=== PATIENT | female | born 1970 | race Hispanic/Latino ===

== ENCOUNTER 2019-12-01 11:33 | Emergency (ER) | payer BC ==
[~2019-12-01] VITALS: Ht 152.4 cm; Wt 67.2 kg
[~2019-12-01 11:33] MED LIST: LIPITOR40 MG PO; birth control PO
[2019-12-01] MEDS ORDERED: SODIUM CHLORIDE FLUSH 10 ML SYR INJ PRN (12:30)
[2019-12-01] MEDS ORDERED: CEFTRIAXONE SOD 1 GM/NS 50 ML 50 ML IV ONE ×2 (12:30→12:58)
[2019-12-01] MEDS ORDERED: METOPROLOL TARTRATE INJ 1 MG/ML VIAL IV ONE (12:30)
[2019-12-01] MEDS ORDERED: METOPROLOL TARTRATE INJ 1 MG/ML VIAL ONE (12:58)
[2019-12-01 13:21] LABS: BASOPHILS % 0.5 % (0.0-1.0); EOSINOPHILS % 0.2 % (0.0-6.0); HEMATOCRIT 42.4 % (34.2-44.1); HEMOGLOBIN 14.2 g/dL (12.0-16.0); LYMPHOCYTES # (AUTO) 0.9 (1.0-3.2); LYMPHOCYTES % 16.9 % (18.0-39.1); MEAN CORPUSCULAR HEMOGLOBIN 27.2 pg (28-32); MEAN CORPUSCULAR HGB CONC 33.5 g/dL (31-35); MEAN CORPUSCULAR VOLUME 81.1 fL (81-99); MONOCYTES # (AUTO) 0.5 (0.2-0.8); MONOCYTES % 8.3 % (4.4-11.3); NEUTROPHILS # (AUTO) 4.1 (2.1-6.9); NEUTROPHILS % 73.9 % (38.7-80.0); PLATELET COUNT 292 x10e3/uL (140-360); RED BLOOD COUNT 5.23 x10e6/uL (3.6-5.1); RED CELL DISTRIBUTION WIDTH 12.5 % (11.7-14.4)
--- NOTE | 2019-12-01 13:27 | Diagnostic Imaging Report ---
EXAMINATION: CXR 2 VIEW - HOPD INDICATION: palpitations/tachycardia COMPARISON: None FINDINGS: TUBES and LINES: None. LUNGS: Lungs are well inflated. There is no evidence of pneumonia or pulmonary edema. PLEURA: No pleural effusion or pneumothorax. HEART AND MEDIASTINUM: The cardiomediastinal silhouette is unremarkable. BONES AND SOFT TISSUES: No acute osseous lesion. Soft tissues are unremarkable. UPPER ABDOMEN: No free air under the diaphragm. IMPRESSION: No acute thoracic abnormality. Signed by: Dr. Singh Hamilton MD on 12/01/2019 1:24 PM
--- NOTE | 2019-12-01 13:37 | Emergency Department Note ---
History of Present Illnes History of Present Illness Chief Complaint: palpitations History of Present Illness This is a 49 year old female. was doing well until [address] arted on lipitor then anxious, cough, dysuria then palpitations. no pain Historian: Patient Arrival Mode: Car History limited by: condition of the patient (normal) Onset (how long ago): day(s) (3) Location: see above Quality: n/a Radiation: Reports non-radiation Severity: moderate Onset quality: sudden Duration (how long): day(s) (3) Timing of current episode: constant Progression: waxing and waning Chronicity: new Context: Denies recent illness, Denies recent surgery, Denies recent immobilization, Denies recent travel, Denies trauma/injury, Denies new medications, Denies hx of DVT/PE, Denies non-compliance w/ medications Relieving factors: rest Exacerbating factors: movement Associated symptoms: Reports cough Treatments prior to arrival: none Past Medical/Family History Physician Review I have reviewed the patient's past medical and family history. Any updates have been documented here. Past Medical History Recent Fever: No Clinical Suspicion of Infectio: No New/Unexplained Change in Ment: No Past Medical History: Hypertension, Anxiety, Hyperlipedemia Past Surgical History: Tubal Ligation Other Surgery: Breast augmentation Social History Smoking Cessation: Never Smoker Counseling Performed: No Alcohol Use: Occasional Any Illegal Drug Use: No Physically hurt or threatened: No Other Any Pre-Existing Lines (PICC,: No Review of Systems Review of Systems Constitutional: Reports no symptoms EENTM: Reports no symptoms Cardiovascular: Reports as per HPI Respiratory: Reports as per HPI Gastrointestinal: Reports no symptoms Genitourinary: Reports no symptoms Musculoskeletal: Reports no symptoms Integumentary: Reports no symptoms Neurological: Reports no symptoms Psychological: Reports as per HPI Endocrine: Reports no symptoms Hematological/Lymphatic: Reports no symptoms Review of other systems: All other systems negative Physical Exam Related Data Allergies: Coded Allergies: No Known Allergies (Unverified , 09/04/12) Triage Vital Signs Vital Signs Date Time Temp Pulse Resp B/P (MAP) Pulse Ox O2 Delivery O2 Flow Rate FiO2 12/01/19 11:50 99.3 135 16 152/82 99 Room Air Vital signs reviewed: Yes Physical Exam CONSTITUTIONAL Constitutional: Present well-developed, Present well-nourished, Present other (+anxious) HENT HENT: Present normocephalic, Present atraumatic, Present oropharynx sasha ar/moist, Present nose normal HENT L/R: Present left ext ear normal, Present right ext ear normal EYES Eyes: Reports PERRL, Reports conjunctivae normal NECK Neck: Present ROM normal PULMONARY Pulmonary: Present effort normal, Present breath sounds normal CARDIOVASCULAR Cardiovascular: Present regular rhythm, Present heart sounds normal, Present capillary refill normal, Present tachycardia GASTROINTESTINAL Abdominal: Present soft, Present nontender, Present bowel sounds normal GENITOURINARY Genitourinary: Present exam deferred SKIN Skin: Present warm, Present dry MUSCULOSKELETAL Musculoskeletal: Present ROM normal NEUROLOGICAL Neurological: Present alert, Present oriented x 3, Present no gross motor or sensory deficits PSYCHOLOGICAL Psychological: Present mood/affect normal, Present judgement normal Results Laboratory Laboratory Laboratory Tests Test 12/01/19 12:55 Lab results reviewed: Yes Laboratory comments cbc/bmp/lfts/d dimer/cardiac enzymes all normal// ua=+leuk Imaging Imaging results reviewed: Yes Impressions [place] [id number] Patient Name: NEDA CARDENAS MR #: [id number] : 1970 Age/Sex: 49/F Req #: [id number] Adm Physician: Ordered by: JAMEL CORNEJO Report #: [id number] Location: [facility] Room/Bed: Procedure: [id number] HOPD/CXR 2 VIEW - HOPD Exam Date: 12/01/19 Exam Time: 1239 REPORT STATUS: Signed EXAMINATION: CXR 2 VIEW - HOPD INDICATION: palpitations/tachycardia COMPARISON: None FINDINGS: TUBES and LINES: None. LUNGS: Lungs are well inflated. There is no evidence of pneumonia or pulmonary edema. PLEURA: No pleural effusion or pneumothorax. HEART AND MEDIASTINUM: The cardiomediastinal silhouette is unremarkable. BONES AND SOFT TISSUES: No acute osseous lesion. Soft tissues are unremarkable. UPPER ABDOMEN: No free air under the diaphragm. IMPRESSION: No acute thoracic abnormality. Signed by: Dr. Stephen Hamilton MD on 12/01/2019 1:24 PM Dictated By: STEPHEN HAMILTON MD [id number] Transcribed By: RAIN on 12/01/19 1324 COPY TO: JAMEL CORNEJO~ Procedures 12 Lead ECG Interpretation ECG Interpretation : ECG: ECG 1 Date: Dec 01, 2019 Time: 11:58 Rhythm: sinus tachycardia BPM: 125 QRS axis: normal ST segments normal: Yes T waves normal: Yes Clinical Impression: abnormal ECG Assessment & Plan Medical Decision Making MDM palpitations, uti, lipitor side effect Reassessment Reassessment time: 13:34 Reassessment no more palpitations/ HR =80 S/P LOPRESSOR Assessment & Plan Final Impression: (1) Palpitations (2) UTI (urinary tract infection) (3) Medication side effect Depart Disposition: HOME, SELF-CARE Last Vital Signs Date Time Temp Pulse Resp B/P (MAP) Pulse Ox O2 Delivery O2 Flow Rate FiO2 12/01/19 13:00 109 128/73 12/01/19 11:50 99.3 16 99 Room Air Home Meds Reported Medications [ control] No Conflict Check, PO DAILY 09/05/12 Atorvastatin Calcium (LIPITOR) 40 Mg Tablet, 40 MG PO DAILY 09/04/12 Medications in the ED Sodium Chloride 10 ml PRN PRN INJ IV SITE FLUSH; Start 12/01/19 at 12:30; Stop 12/31/19 at 12:29 Metoprolol Tartrate 5 mg ONCE ONCE IV Last administered on 12/01/19at 13:00; Admin Dose 5 MG; Start 12/01/19 at 12:30; Stop 12/01/19 at 12:31; Status DC Ceftriaxone Sodium 50 ml @ 100 mls/hr ONCE ONCE IV Last administered on 12/01/19at 13:00; Admin Dose 100 MLS/HR; Start 12/01/19 at 12:30; Stop 12/01/19 at 12:59; Status DC Metoprolol Tartrate 5 mg STK-MED ONCE .ROUTE ; Start 12/01/19 at 12:58; Stop 12/01/19 at 12:52; Status DC Ceftriaxone Sodium 50 ml @ ud STK-MED ONCE IV ; Start 12/01/19 at 12:58; Stop 12/01/19 at 12:52; Status DC JAMEL CORNEJO Dec 01, 2019 13:37
[2019-12-01 14:05] VITALS: BP 109/64
== END 2019-12-01 14:17 | disposition home or self-care (01) ==
LOC: FSED 11:53
DX: R00.2 Palpitations (principal); T46.6X5A Adverse effect of antihyperlipidemic and antiarteriosclerotic drugs, initial encounter; N39.0 Urinary tract infection, site not specified; I10 Essential (primary) hypertension; E78.5 Hyperlipidemia, unspecified; F41.9 Anxiety disorder, unspecified; R94.31 Abnormal electrocardiogram [ECG] [EKG]
CPT/HCPCS: 36415; 71046; 81003; 85025; 87086; 96374; 99283; J0696; 93005